=== PATIENT | male | born 1995 | race Hispanic/Latino ===

== ENCOUNTER 2018-12-14 09:17 | Emergency (ER) | payer OTHER, SELFPAY ==
--- NOTE | 2018-12-14 09:52 | ER ---
Nurse's Notes [facility] Name: Rizwan Desouza Jr Age: 23 yrs Sex: Male : 1995 Arrival Date: 12/14/2018 Time: 09:21 Bed 18 Private MD: None, None Diagnosis: Acute sinusitis, unspecified Presentation: 12/14 09:29 Presenting complaint: Patient states: L sided facial pain that began 4 days ago. ss Patient states he is unsure, but believes it may be a combination of sinus pressure and a wisdom tooth coming in. Transition of care: patient was not received from another setting of care. Onset of symptoms was December 10, 2018. Risk Assessment: Do you want to hurt yourself or someone else? Patient reports no desire to harm self or others. Initial Sepsis Screen: Does the patient meet any 2 criteria? No. Patient's initial sepsis screen is negative. Does the patient have a suspected source of infection? No. Patient's initial sepsis screen is negative. Care prior to arrival: None. 09:29 Method Of Arrival: Ambulatory ss 09:29 Acuity: ALEAH 4 ss Historical: - Allergies: 09:31 No Known Allergies; ss - Home Meds: 09:31 None [Active]; ss - PMHx: 09:31 None; ss - PSHx: 09:31 None; ss - Immunization history:: Adult Immunizations up to date. - Social history:: Smoking status: Patient/guardian denies using tobacco. - Ebola Screening: : Patient denies exposure to infectious person Patient denies travel to an Ebola-affected area in the 21 days before illness onset. - Family history:: not pertinent. - Hospitalizations: : No recent hospitalization is reported. Screenin:30 Abuse screen: Denies threats or abuse. Denies injuries from another. Nutritional hb screening: No deficits noted. Tuberculosis screening: No symptoms or risk factors identified. Fall Risk None identified. Assessment: 09:30 General: Appears in no apparent distress. ill, Behavior is calm, cooperative. Pain: hb Pain currently is 5 out of 10 on a pain scale. Neuro: Level of Consciousness is awake, alert, obeys commands, Oriented to person, place, time, situation. Cardiovascular: Capillary refill < 3 seconds Patient's skin is warm and dry. Respiratory: Airway is patent Respiratory effort is even, unlabored, Respiratory pattern is regular, symmetrical. GI: No signs and/or symptoms were reported involving the gastrointestinal system. : No signs and/or symptoms were reported regarding the genitourinary system. EENT: Reports sinus congestion, headache. Derm: Skin is pink, warm \T\ dry. Musculoskeletal: No signs and/or symptoms reported regarding the musculoskeletal system. Vital Signs: 09:31 BP 109 / 84; Pulse 84; Resp 16; Temp 98.3(TE); Pulse Ox 100% on R/A; Weight 83.91 kg; ss Height 8 ft. 5 in. (256.54 cm); Pain 5/10; 09:31 Body Mass Index 12.75 (83.91 kg, 256.54 cm) ss Yared Coma Score: 09:47 Eye Response: spontaneous(4). Verbal Response: oriented(5). Motor Response: obeys rn commands(6). Total: 15. ED Course: 09:21 Patient arrived in ED. mr 09:21 None, None is Private Physician. mr 09:24 Cj Case MD is Attending Physician. rn 09:30 Triage completed. ss 09:30 Patient has correct armband on for positive identification. Bed in low position. Call hb light in reach. 09:31 Arm band placed on right wrist. 10:03 Marie Alas, RN is Primary Nurse. hb 10:05 No provider procedures requiring assistance completed. Patient did not have IV access hb during this emergency room visit. Administered Medications: No medications were administered Outcome: 09:51 Discharge ordered by . rn 10:05 Discharged to home ambulatory. hb 10:05 Condition: stable 10:05 Discharge instructions given to patient, Instructed on discharge instructions, follow up and referral plans. medication usage, Demonstrated understanding of instructions, follow-up care, medications, Prescriptions given X 2. 10:06 Patient left the ED. hb Signatures: Ajay Zayra mr Cj Case MD MD rn Smirch, Shelby, RN RN Marie Alas RN RN hb
--- NOTE | 2018-12-14 09:52 | EDPHYS ---
Physician Documentation [facility] Name: Rizwan Desouza Jr Age: 23 yrs Sex: Male : 1995 Arrival Date: 12/14/2018 Time: 09:21 Bed 18 Private MD: None, None ED Physician Cj Case HPI: 12/14 09:47 This 23 yrs old Male presents to ER via Ambulatory with complaints of rn Headache, Sinus Congestion. 09:47 The patient complains of pain to the forehead and left cheek. The patient describes the rn headache as aching. Onset: The symptoms/episode began/occurred 3 day(s) ago. Severity of symptoms: At its worst the pain was mild, in the emergency department the pain is unchanged. The patient has not experienced similar symptoms in the past. The patient has not recently seen a physician. Reports headache, left gum pain, chills, nasal drainage and mucous production. No focal neurological complaints. No head injury. Smokes marijuana.. Historical: - Allergies: 09:31 No Known Allergies; ss - Home Meds: 09:31 None [Active]; ss - PMHx: : None; ss - PSHx: 09:31 None; ss - Immunization history:: Adult Immunizations up to date. - Social history:: Smoking status: Patient/guardian denies using tobacco. - Ebola Screening: : Patient denies exposure to infectious person Patient denies travel to an Ebola-affected area in the 21 days before illness onset. - Family history:: not pertinent. - Hospitalizations: : No recent hospitalization is reported. ROS: 09:47 Constitutional: + subjective fever and chills Eyes: Negative for injury, pain, redness, rn and discharge, ENT: + sinus pressure and drainage Neck: Negative for injury, pain, and swelling, Cardiovascular: Negative for chest pain, palpitations, and edema, Respiratory: Negative for shortness of breath, cough, wheezing, and pleuritic chest pain, Abdomen/GI: Negative for abdominal pain, nausea, vomiting, diarrhea, and constipation, MS/Extremity: Negative for injury and deformity, Skin: Negative for injury, rash, and discoloration, Neuro: Negative for weakness, numbness, tingling, and seizure. Exam: 09:47 Constitutional: This is a well developed, well nourished patient who is awake, alert, rn and in no acute distress. Head/Face: Normocephalic, atraumatic. Eyes: Pupils equal round and reactive to light, extra-ocular motions intact. Lids and lashes normal. Conjunctiva and sclera are non-icteric and not injected. Cornea within normal limits. Periorbital areas with no swelling, redness, or edema. ENT: MMM, + tenderness left maxillary sinus, no dental masses or swelling Neck: Trachea midline, no thyromegaly or masses palpated, and no cervical lymphadenopathy. Supple, full range of motion without nuchal rigidity, or vertebral point tenderness. No Meningismus. Cardiovascular: Regular rate and rhythm. No pulse deficits. Respiratory: No increased work of breathing, no retractions or nasal flaring. Abdomen/GI: soft, non-tender MS/ Extremity: Pulses equal, no cyanosis. Neurovascular intact. Full, normal range of motion. Equal circumference. Neuro: Awake and alert, GCS 15, oriented to person, place, time, and situation. Cranial nerves II-XII grossly intact. Motor strength 5/5 in all extremities. Sensory grossly intact. Vital Signs: 09:31 BP 109 / 84; Pulse 84; Resp 16; Temp 98.3(TE); Pulse Ox 100% on R/A; Weight 83.91 kg; ss Height 8 ft. 5 in. (256.54 cm); Pain 5/10; 09:31 Body Mass Index 12.75 (83.91 kg, 256.54 cm) ss Yared Coma Score: 09:47 Eye Response: spontaneous(4). Verbal Response: oriented(5). Motor Response: obeys rn commands(6). Total: 15. MDM: 09:24 Patient medically screened. rn 09:47 Differential diagnosis: sinusitis. Data reviewed: vital signs, nurses notes, and as a rn result, I will discharge patient. Counseling: I had a detailed discussion with the patient and/or guardian regarding: the historical points, exam findings, and any diagnostic results supporting the discharge/admit diagnosis, the need for outpatient follow up, to return to the emergency department if symptoms worsen or persist or if there are any questions or concerns that arise at home. Special discussion: I discussed with the patient/guardian in detail that at this point there is no indication for admission to the hospital. It is understood, however, that if the symptoms persist or worsen the patient needs to return immediately for re-evaluation. Administered Medications: No medications were administered Disposition: 12/14/18 09:51 Discharged to Home. Impression: Acute sinusitis, unspecified. - Condition is Stable. - Discharge Instructions: Sinusitis, Adult. - Prescriptions for Augmentin 875- 125 mg Oral Tablet - take 1 tablet by ORAL route every 12 hours for 10 days; 20 tablet. Medrol (Carlos) 4 mg Oral Tablets, Dose Pack - take 1 tablet by ORAL route as directed - follow package instructions; 1 packet. - Medication Reconciliation Form, Thank You Letter, Antibiotic Education, Prescription Opioid Use, Work release form form. - Follow up: Private Physician; When: As needed; Reason: Recheck today's complaints, Re-evaluation by your physician. - Problem is new. - Symptoms are unchanged. Signatures: Cj Case MD MD rn Smirch, Shelby, RN RN Marie Alas RN RN Corrections: (The following items were deleted from the chart) 10:06 09:51 12/14/2018 09:51 Discharged to Home. Impression: Acute sinusitis, unspecified. hb Condition is Stable. Forms are Medication Reconciliation Form, Thank You Letter, Antibiotic Education, Prescription Opioid Use. Follow up: Private Physician; When: As needed; Reason: Recheck today's complaints, Re-evaluation by your physician. Problem is new. Symptoms are unchanged. rn
[2018-12-14 10:17] VITALS: BP 109/84; TEMP 98.3; O2SAT 100
== END 2018-12-14 10:06 | disposition home or self-care (01) ==
LOC: ER 09:17
DX: J01.90 Acute sinusitis, unspecified (principal)
CPT/HCPCS: 99282

== ENCOUNTER 2019-04-22 17:35 | Emergency (ER) | payer SELFPAY ==
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
[2019-04-22 18:59] VITALS: TEMP 98.8; O2SAT 96
--- NOTE | 2019-04-23 12:27 | EKG ---
Test Date: 2019-04-22 Test Time: 18:03:54 Coding Compliance Auditor: [place] MEASUREMENT RESULTS: Intervals: Rate: 83 MO: 124 QRSD: 132 QT: 378 QTc: 444 [place]: P: 33 MO: 124 QRS: 38 T: 38 INTERPRETIVE STATEMENTS: Normal sinus rhythm Right bundle branch block Abnormal ECG Compared to ECG 12/25/2006 07:54:47 Right bundle-branch block now present Electronically Signed On 04-23-19 12:26:29 VITAMIN MANAGER by Yaw Crystal
== END 2019-04-22 18:31 | disposition home or self-care (01) ==
LOC: ER 17:35
DX: P29.89 Other cardiovascular disorders originating in the perinatal period (principal); F17.210 Nicotine dependence, cigarettes, uncomplicated
CPT/HCPCS: 93005; 99284